=== PATIENT | female | born 1950 | race Caucasian/White ===

== ENCOUNTER 2020-06-20 11:32 | Outpatient (CLI) | payer OTHER, SELFPAY ==
[2020-06-20 12:21] LABS: Add Urine Microscopic? NO
[2020-06-20 12:27] LABS: Basophils # 0.1 10^3/uL (0.0-0.1); Basophils % 1.1 %; Eosinophils # 0.2 10^3/uL (0.0-0.8); Eosinophils % 3.2 %; Hematocrit 43.2 % (37.0-47.0); Hemoglobin 13.7 g/dL (11.5-15.3); Lymphocytes % 30.7 %; Mean Corpuscular HGB Conc 31.7 g/dL (30.0-36.0); Mean Corpuscular Volume 91.3 fL (81-99); Mean Platelet Volume 12.5 fL (7.4-10.4); Monocytes # 0.6 10^3/uL (0.2-0.9); Monocytes % 8.9 %; Neutrophils # 3.73 10^3/uL (1.8-7.7); Neutrophils % 55.9 %; Nucleated Red Blood Cells % 0 %; Platelet Count 195 10^3/cmm (130-400); Red Blood Count 4.73 10^6/uL (4.1-5.3); Red Cell Distribution Width 12.4 % (12.1-15.1); White Blood Count 6.7 10^3/uL (4.0-10.0)
[2020-06-20 12:32] LABS: Bilirubin Urine Neg (NEGATIVE); Blood Urine Neg (Negative); Glucose Urine UA Norm (Normal); Ketones Urine Negative (Negative); Leukocyte Esterase Urine Negative (Negative); Nitrate Urine Negative (Negative); Protein Urine Neg (Negative); Urine Appearance Clear (CLEAR); Urine Color Yellow (Yellow); Urobilinogen Urine Neg (Negative); pH Urine 5 (5-7)
[2020-06-20 13:42] LABS: 25 Hydroxy Vitamin D 59 ng/mL (30-100); Alanine Aminotransferase 20 U/L (0-33); Albumin Level 4.3 g/dL (3.5-5.2); Alkaline Phosphatase 51 IU/L (35-105); Anion Gap 12.3 (5-19); Aspartate Amino Transferase 16 U/L (0-32); Blood Urea Nitrogen 23 mg/dL (8-23); Calcium 9.6 mg/dL (8.5-10.5); Carbon Dioxide 25 mmol/L (22-29); Chloride 107 mmol/L (98-107); Globulin 2.8 g/dL (1.3-4.6); Glucose 93 mg/dL (65-115); Osmolality Calculated 286 mOsm/kg (285-295); Potassium 4.3 mmol/L (3.5-5.1); Sodium 140 mmol/L (136-145); Thyroid Stimulating Hormone 0.06 uIU/mL (0.27-4.20); Total Bilirubin 0.3 mg/dL (0.15-1.2); Total Protein 7.1 g/dL (6.6-8.7)
[2020-06-20 15:39] LABS: Free T4 Free Thyroxine 1.28 ng/dL (0.82-1.77)
--- NOTE | 2020-06-20 18:04 | ONC FU_ITS ---
Dr. Edward Patient Follow-Up Note Patient: Valeria Morton Unit #: [id number]: 1950 Dicatated By: Miguel Edward M.D.Date of Visit:Jun 20, 2020 Onc Med Follow-up/Prog Note Chief Complaint: Breast cancer. History of Present Illness: This is a 69 year-old woman with multifocal grade 2 infiltrating ductal carcinoma of the right breast, stage IIB (T2, pN1mi, M0), ER/KY positive and HER-2/alek nonamplified. She had presented in August 2014 with an abnormal screening mammogram which showed a new area of architectural distortion in the right breast along the 12:00 axis. She had further evaluation with diagnostic mammogram and ultrasound on 10/01/2014. Those studies confirmed the presence of 2 areas of architectural distortion in the upper outer aspect of the right breast, one along the 10:00 axis measuring 1.4 x 1.9 cm and the other along the 12:00 axis measuring 1.8 x 0.8 cm. By ultrasound the lesions measured 1.4 x 1.0 cm and 0.5 x 0.7 cm respectively. Both were felt to be intermediate suspicion for malignancy. She underwent ultrasound-guided biopsy on 10/26/2014. Both lesions showed grade 2 infiltrating ductal carcinoma. The breast prognostic profile showed her tumor to be ER positive at 99% and KY positive at 99%. It was negative for overexpression of HER-2/alek, 2+ by IHC and amplification ratio 1.2 by FISH. I had seen her in October 2014 to discuss treatment options, and she decided not to pursue breast conservation. She underwent surgery on 12/31/2014. The procedure included right total mastectomy with axillary sentinel lymph node biopsy, prophylactic left mastectomy, and bilateral TRAM flap reconstruction. Pathology on the mastectomy showed a single tumor nodule in the upper outer quadrant which measured 2.2 x 1 x 0.6 cm. The nearest margin was 2 cm. The remainder of the breast showed a large amount of fibrocystic change, but there was no additional mass lesion identified. The tumor was a grade 1 invasive ductal carcinoma. 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 The sentinel lymph node biopsy showed a total of 4 lymph nodes, one of which showed micrometastatic involvement which measured at 0.4 mm. The left breast showed no diagnostic abnormality. Evaluation from the initial biopsy also included an Oncotype DX assay which came back low risk with a recurrence score of 2, correlating with a 4% risk of recurrence at 10 years ollowing adjuvant hormonal therapy. I had seen her for a follow-up visit in January 2015. At that time we discussed adjuvant hormonal therapy. I had recommended 5 years of treatment with anastrozole. She ultimately declined treatment, and she has been followed on observation/expectant management. Her other medical illnesses include allergic rhinitis, degenerative disease of the spine, and overactive bladder. She also has a history of thyroid nodules with associated hyperparathyroidism, but she has not required treatment for it. Her laboratory studies in 2017 did show evidence of vitamin D deficiency, for which she has been on replacement therapy. She is a nonsmoker. She is seen for a followup visit. She has been feeling pretty good generally, though she says her energy has been better. She has normal activity, though. Her ECOG score is 0. She says her blood pressure has been elevated. She has good appetite. She has not had fever. She has a little bit of hot flashes and sweating. Her main complaint is that for the past 2 to 3 months she has been having pain in the lateral aspect of the right thigh. It tends to bother her particularly when she is lifting her right leg or crossing her right leg over to the left side. She has no shortness of breath, cough, or chest pain. She has no GI complaints other than mild constipation, which she manages adequately with a stool softener. She says her bladder function is never good, but it is not any worse. She has frequency and urgency. She did have a urinary tract infection when it was checked last year. She also has some joint pain and some low back pain, which she manages adequately with ibuprofen once or twice a day. She has no focal neurologic symptoms. Medications: Annette 1 (180 mg) Tablet Oral daily, Azo Tabs 1 Tablet Oral daily PRN, Calcium 1 (600 mg) Tablet Oral daily, Cholecalciferol 1 (1000 Units) Tablet Oral daily, Colace 1 (200 mg) Capsule Oral every am, Ibuprofen 1 (800 mg) Tablet Oral b.i.d. PRN, Lisinopril 1 (5 mg) Tablet Oral daily, Megestrol Acetate 1 (20 mg) Tablet Oral daily, sagpro 1 Tablet daily Allergies: sulfADIAZINE Review of Systems: Constitutional - She has been feeling good, though she says her energy has been better. She has normal activity, though. Her appetite is good and her weight is down about 4 pounds from last years visit. No fever, night sweats, or hot flashes. ECOG score is 0, ENMT - She has chronic sinus congestion/drainage. No mouth sores. No sore throat or difficulty swallowing, Hematologic/Lymphatic - She bruises easily, Respiratory - No shortness of breath. No cough. No pleuritic pain or hemoptysis, Cardiovascular - No angina pain. No palpitations, Gastrointestinal - No nausea or vomiting. No heartburn or acid reflux. No diarrhea or constipation. No blood in the stool or black stools, Genitourinary (F) - No dysuria or hematuria. She has urinary frequency and urgency. No incontinence, Musculoskeletal - She is having pain to her right hip area, particularly when moving lifting her leg up or getting in and out of her car. She also has some arthritis pain in her lower back, shoulders, and hands, Integumentary - No skin complications, Neurologic - No headache or dizziness. No numbness or tingling. No other focal neurologic symptoms, Psychiatric - No anxiety or depression. No insomnia. Vital Signs: Performed on Jun 20, 2020 11:22 Height - 63.00 in Weight - 168.2 lbs (LOW) BSA - 1.80 sq.m BMI - 29.80 Temperature - 98.1 F (LOW) Pulse - 79 /min Respiration - 18 /min BP - 176/71 mm(hg) (HIGH) O2 Sat - 99 % Pain - 0 Physical Examination: Constitutional - She looks good generally, Eyes - Sclerae nonicteric. Conjunctivae clear, ENMT - No lesions noted in the oral cavity, Hematologic/Lymphatic - No cervical or clavicular adenopathy, Respiratory - Lungs are clear with good air movement bilaterally, Cardiovascular - Heart rhythm is regular. There is no murmur, gallop, or rub noted, Breasts - There are no lesions noted in the chest wall/reconstruction bilaterally. There is no axillary adenopathy noted, Abdomen - Soft. Liver and spleen are not enlarged. There is no abdominal mass or ascites noted and there is no inguinal adenopathy, Extremities - No edema. There is focal tenderness in the lateral aspect of the upper right thigh, Neurologic - No focal neurologic deficits noted. Impression: 1. Patient with multifocal grade 2 invasive ductal carcinoma of the right breast, stage IIB (T2, pN1mi, M0), ER/KY positive and HER-2/alek negative. She was low risk by Oncotype DX, recurrence score 2. 2. She underwent bilateral mastectomy, right axillary sentinel lymph node biopsy, and bilateral TRAM flap reconstruction on 12/31/2014. 3. She declined adjuvant hormonal therapy. Her other medical illnesses include: 4. Hypertension. 5. Allergic rhinitis. 6. Degenerative arthritis. 7. Overactive bladder. 8. She has a history of thyroid nodules with associated hyperparathyroidism. 9. She was found to have vitamin D deficiency. She has been followed on observation/expectant management following the surgery. Thus far there has been no evidence of recurrence of the breast cancer. Recently she has been having pain in the lateral aspect of the right thigh. She does have some tenderness in that area, and it may be a trochanteric bursitis. Overall, she appears to be doing well clinically. Plan: She remains on observation/expectant management for the breast cancer. She will have laboratory studies today to include CBC, comprehensive metabolic profile, thyroid profile, and 25-hydroxy vitamin D level. I also will recheck urinalysis and culture. Results will be forwarded to Dr. Flores. I suggested that she try Voltaren gel for the right leg pain. She will require evaluation, though, if that continues to worsen. Otherwise I will just see her again in 1 year. Signed By: Miguel Edward M.D. <<Signature on File>>
== END 2020-06-20 11:33 | disposition home or self-care (01) ==
PROVIDERS: PCP Family Medicine; Visit Provider Internal Medicine Medical Oncology
DX: Z08 Encounter for follow-up examination after completed treatment for malignant neoplasm (principal); Z85.3 Personal history of malignant neoplasm of breast; N32.81 Overactive bladder; E83.32 Hereditary vitamin D-dependent rickets (type 1) (type 2); I10 Essential (primary) hypertension; J30.9 Allergic rhinitis, unspecified; E21.3 Hyperparathyroidism, unspecified; M19.90 Unspecified osteoarthritis, unspecified site
CPT/HCPCS: 36415; 80053; 81003; 82306; 84439; 84443; 85025; 99214

== ENCOUNTER 2020-10-28 08:24 | Outpatient (CLI) | payer OTHER, SELFPAY ==
--- NOTE | 2020-10-28 08:27 | NM_ITS ---
WS: [id number] NUCLEAR MEDICINE 24 HOUR I-123 THYROID UPTAKE INDICATION: Abnormal TSH TECHNIQUE: I-123 24 HOUR THYROID UPTAKE WITH PLANAR IMAGING. 141 [facility] 123 COMPARISON: None FINDINGS: 24-hour thyroid uptake 21.02% within normal limits. Patchy heterogeneous uptake in both thy roid lobes. Large cold nodule within the right thyroid measuring approximately 2.5-3.0cm. Recommend f urther evaluation with thyroid ultrasound and FNA if indicated. This likely corresponds to the large peripherally calcified low-attenuation nodule in the prior cervical spine CT from 2018. Suggestion of additional smaller cold nodule in the right lower thyroid pole peripherally Additional nodular uptake within the left upper thyroid lobe and patchy uptake in the remainder of th e right thyroid lobe. Correlation with thyroid ultrasound would be helpful. NORMAL 24H THRYOID UPTAKE 8-35% NM/NM thyroid uptake multi [id number] IMPRESSION: 1. 24 hour thyroid uptake 21.0% 2. Large cold nodule in the right thyroid lobe measuring approximately 2.5- 3 cm. Recommend further evaluation with thyroid ultrasound and FNA if indicated a fter ultrasound. 3. Suggestion of smaller cold nodule in the right lower thyroid pole periphera lly
== END 2020-10-28 08:25 | disposition home or self-care (01) ==
LOC: RAD 08:25
PROVIDERS: PCP Family Medicine; Visit Provider Family Medicine
DX: E04.1 Nontoxic single thyroid nodule (principal)
CPT/HCPCS: 78014; A9516

== ENCOUNTER 2020-11-14 10:05 | Outpatient (CLI) | payer OTHER, SELFPAY ==
--- NOTE | 2020-11-14 10:08 | US_ITS ---
WS: [id number] Exam: US thyroid [id number] Date/Time of Exam: 11/14/2020 10:15 AM Reason For Exam: NONTOXIC SINGLE THYROID NODULE Evaluation of the right thyroid lobe shows an irregular thick-walled cystic lesion in the upper pole measuring 3 x 2.3 x 2.3 cm. This lesion also contains some coarse calcification. There is also a 1 x 1 x 0.7 cm solid hypoechoic nodule at the lower pole of the right thyroid lobe. The right lobe is enl arged and measures 4.6 x 2.8 x 3.1 cm. Evaluation of the left thyroid lobe shows an ill-defined hypoechoic solid lesion at the upper pole me asuring 1.7 x 1.34 x 1.13 cm. There are several other scattered cysts and tiny nodules in the left lo be. The left lobe is enlarged and measures 4.5 x 1.2 x 1.22 cm. The thyroid isthmus measures 2.3 mm a t greatest thickness. Nonspecific subcentimeter short axis lymph nodes identified in the right and left neck. Some show par tial fatty replacement. US/US thyroid [id number] IMPRESSION: 1. 1.7 x 1.34 x 1.13 cm ill-defined hypoechoic nodule in the upper pole of the left thyroid lobe. This is an indeterminate lesion and fine needle aspiration b iopsy would be recommended for further workup. 2. 3 x 2.3 x 2.3 cm thick-walled irregular cystic mass in the upper pole of the right thyroid lobe with coarse calcification. A second 1 x 1 x 0.7 cm solid no dule at the lower pole of the right thyroid lobe. Although both lesions in the right thyroid lobe are considered low probability for malignancy, fine needle a spiration biopsy of both lesions would be suggested for definitive diagnosis. 3. Goitrous enlargement of both thyroid lobes.
== END 2020-11-14 10:06 | disposition home or self-care (01) ==
LOC: US 10:06
PROVIDERS: PCP Family Medicine; Visit Provider Family Medicine
DX: E04.1 Nontoxic single thyroid nodule (principal); E04.9 Nontoxic goiter, unspecified; E07.9 Disorder of thyroid, unspecified
CPT/HCPCS: 76536

== ENCOUNTER → 2021-01-09 13:57 | Outpatient (BNVA) | payer MEDICARE, SELFPAY | PROVIDERS: PCP Family Medicine; Referring Provider Specialist; Visit Provider Internal Medicine | DX: E05.90 Thyrotoxicosis, unspecified without thyrotoxic crisis or storm (principal); E04.1 Nontoxic single thyroid nodule | CPT/HCPCS: 99204 ==

== ENCOUNTER 2021-01-13 10:44 | Outpatient (CLI) | payer MEDICARE, SELFPAY ==
[2021-01-13 15:30] LABS: Free T4 Free Thyroxine 1.07 ng/dL (0.82-1.77); Thyroid Stimulating Hormone 0.09 uIU/mL (0.27-4.20)
[2021-01-14 14:37] LABS: Thyroid Peroxidase Antobodies 1 IU/mL (<9)
[2021-01-16 16:13] LABS: TSH Receptor Binding Antibody <1.00 IU/L (< OR = 2.00)
== END 2021-01-13 10:45 | disposition home or self-care (01) ==
PROVIDERS: PCP Family Medicine; Visit Provider Internal Medicine
DX: E05.90 Thyrotoxicosis, unspecified without thyrotoxic crisis or storm (principal); E04.1 Nontoxic single thyroid nodule
CPT/HCPCS: 36415; 83516; 84439; 84443; 84480; 86376

== ENCOUNTER 2021-01-22 13:33 | Outpatient (CLI) | payer MEDICARE, SELFPAY ==
[2021-02-20 14:10] LABS: T3 Total 140
== END 2021-01-23 13:34 | disposition home or self-care (01) ==
PROVIDERS: PCP Family Medicine; Visit Provider Internal Medicine
DX: E05.90 Thyrotoxicosis, unspecified without thyrotoxic crisis or storm (principal); E04.1 Nontoxic single thyroid nodule
CPT/HCPCS: 36415; 84480

== ENCOUNTER 2021-04-17 06:00 | Outpatient (RCR) | payer MEDICARE, SELFPAY | END 2021-05-14 23:59 | disposition home or self-care (01) | LOC: SPT 06:00 | PROVIDERS: PCP Family Medicine; Referring Provider Family Medicine; Visit Provider Family Medicine | DX: M43.6 Torticollis (principal) | CPT/HCPCS: 97110; 97161; G0283 ==

== ENCOUNTER 2021-06-13 12:04 | Outpatient (CLI) | payer MEDICARE, SELFPAY ==
[2021-06-13 13:07] LABS: Free T4 Free Thyroxine 1.23 ng/dL (0.82-1.77); Thyroid Stimulating Hormone 0.01 uIU/mL (0.27-4.20)
[2021-06-14 09:18] LABS: T3 Total 144 ng/dL (76-181)
== END 2021-06-13 12:05 | disposition home or self-care (01) ==
LOC: LAB 12:11
PROVIDERS: PCP Family Medicine; Visit Provider Internal Medicine
DX: E04.1 Nontoxic single thyroid nodule (principal)
CPT/HCPCS: 36415; 84439; 84443; 84480

== ENCOUNTER → 2021-07-23 09:40 | Outpatient (BNVA) | payer MEDICARE, SELFPAY | PROVIDERS: PCP Family Medicine; Referring Provider Family Medicine; Visit Provider Specialist | DX: M25.531 Pain in right wrist (principal) | CPT/HCPCS: 73110 ==

== ENCOUNTER 2021-09-04 15:37 | Outpatient (CLI) | payer MEDICARE, SELFPAY ==
--- NOTE | 2021-09-04 19:40 | ONC FU_ITS ---
Dr. Edward Patient Follow-Up Note Patient: Valeria Morton Unit #: [id number]: 1950 Dicatated By: Miguel Edward M.D.Date of Visit:Sep 04, 2021 Onc Med Follow-up/Prog Note Chief Complaint: Breast cancer. History of Present Illness: This is a 70 year-old woman with multifocal grade 2 infiltrating ductal carcinoma of the right breast, stage IIB (T2, pN1mi, M0), ER/AZ positive and HER-2/alek nonamplified. She had presented in August 2014 with an abnormal screening mammogram which showed a new area of architectural distortion in the right breast along the 12:00 axis. She had further evaluation with diagnostic mammogram and ultrasound on 10/01/2014. Those studies confirmed the presence of 2 areas of architectural distortion in the upper outer aspect of the right breast, one along the 10:00 axis measuring 1.4 x 1.9 cm and the other along the 12:00 axis measuring 1.8 x 0.8 cm. By ultrasound the lesions measured 1.4 x 1.0 cm and 0.5 x 0.7 cm respectively. Both were felt to be intermediate suspicion for malignancy. She underwent ultrasound-guided biopsy on 10/26/2014. Both lesions showed grade 2 infiltrating ductal carcinoma. The breast prognostic profile showed her tumor to be ER positive at 99% and AZ positive at 99%. It was negative for overexpression of HER-2/alek, 2+ by IHC and amplification ratio 1.2 by FISH. I had seen her in October 2014 to discuss treatment options, and she decided not to pursue breast conservation. She underwent surgery on 12/31/2014. The procedure included right total mastectomy with axillary sentinel lymph node biopsy, prophylactic left mastectomy, and bilateral TRAM flap reconstruction. Pathology on the mastectomy showed a single tumor nodule in the upper outer quadrant which measured 2.2 x 1 x 0.6 cm. The nearest margin was 2 cm. The remainder of the breast showed a large amount of fibrocystic change, but there was no additional mass lesion identified. The tumor was a grade 1 invasive ductal carcinoma. 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 The sentinel lymph node biopsy showed a total of 4 lymph nodes, one of which showed micrometastatic involvement which measured at 0.4 mm. The left breast showed no diagnostic abnormality. Evaluation from the initial biopsy also included an Oncotype DX assay which came back low risk with a recurrence score of 2, correlating with a 4% risk of recurrence at 10 years ollowing adjuvant hormonal therapy. I had seen her for a follow-up visit in January 2015. At that time we discussed adjuvant hormonal therapy. I had recommended 5 years of treatment with anastrozole. She ultimately declined treatment, and she has been followed on observation/expectant management. Her other medical illnesses include allergic rhinitis, degenerative disease of the spine, and overactive bladder. She also has a history of thyroid nodules with associated hyperparathyroidism, but she had not required treatment for it. Her laboratory studies in 2016 did show evidence of vitamin D deficiency, for which she has been on replacement therapy. She is a nonsmoker. INTERIM HISTORY: At her follow-up visit in June 2020 she appeared stable clinically with no evidence of recurrence of the breast cancer. Her laboratory studies at that time did show evidence of hyperthyroidism with TSH low at 0.06 ???IU/mL. Her further evaluation included a thyroid uptake nuclear medicine scan and thyroid ultrasound, and she ultimately underwent biopsy by Dr. Ramirez. She was then referred to Dr. Cochran for further management, and in June she started treatment with methimazole. She is seen for a follow-up visit. She has been feeling good generally. She has good energy and she has normal activity. ECOG score is 0. Her appetite is good. She has not had fever, night sweats, or hot flashes. She does report that her vision has been more blurry. She has some allergy related sinus symptoms. She does not complain of cough, and she has not been having shortness of breath or chest pain. She has had a little bit of heartburn. She has no other GI complaints. She has hyperactive bladder. She has chronic low back pain and she also has developed some pain in her knees. She has been taking meloxicam. She does not complain of headache or dizziness. She has no numbness/paresthesia or other focal neurologic symptoms. Medications: Annette 1 (180 mg) Tablet Oral daily, Azo Tabs 1 Tablet Oral daily PRN, Calcium 1 (600 mg) Tablet Oral daily, Cholecalciferol 1 (1000 Units) Tablet Oral daily, Colace 1 (200 mg) Capsule Oral every am, Lisinopril 1 (5 mg) Tablet Oral daily, Megestrol Acetate 1 (20 mg) Tablet Oral daily, Meloxicam 1 Tablet (of 15 mg) Oral daily, sagpro 1 Tablet daily, Vitamin C 1 Caplet (of 500 mg) Capsule Oral daily, Zinc 1 (50 mg) Tablet Oral daily Allergies: sulfADIAZINE Vital Signs: Performed on Sep 04, 2021 16:02 Height - 63.00 in Weight - 176.6 lbs (HIGH) BSA - 1.83 sq.m BMI - 31.28 (HIGH) Temperature - 99.6 F (HIGH) Pulse - 86 /min Respiration - 18 /min BP - 148/86 mm(hg) (HIGH) O2 Sat - 98 % Pain - 0 Fatigue - 0 Physical Examination: Constitutional - She looks good generally, Eyes - Sclerae nonicteric. Conjunctivae clear, ENMT - No lesions noted in the oral cavity, Neck - No mass or thyromegaly noted, Hematologic/Lymphatic - No cervical, clavicular, or axillary adenopathy, Respiratory - Lungs are clear with good air movement bilaterally, Cardiovascular - Heart rhythm is regular. There is no murmur, gallop, or rub noted, Abdomen - Soft. Liver and spleen are not enlarged. There is no abdominal mass or ascites noted and there is no inguinal adenopathy, Extremities - No edema. Pedal pulses are palpable bilaterally, Neurologic - No focal neurologic deficits noted. Problem List: 1. Multifocal grade 2 invasive ductal carcinoma of the right breast, stage IIB (T2, pN1mi, M0), ER/AZ positive and HER-2/alek negative. She was low risk by Oncotype DX, recurrence score 2. 2. She underwent bilateral mastectomy, right axillary sentinel lymph node biopsy, and bilateral TRAM flap reconstruction on 12/31/2014. She declined adjuvant hormonal therapy. 3. Hyperthyroidism associated with nontoxic goiter. 4. Hypertension. 5. Allergic rhinitis. 6. Degenerative arthritis. 7. Overactive bladder. 8. Vitamin D deficiency. Problems Addressed with this Encounter and Plan: 1. Patient with multifocal grade 2 invasive ductal carcinoma of the right breast, stage IIB (T2, pN1mi, M0), ER/AZ positive and HER-2/alek negative. She was low risk by Oncotype DX, recurrence score 2. She underwent bilateral mastectomy, right axillary sentinel lymph node biopsy, and bilateral TRAM flap reconstruction on 12/31/2014. She has been followed on expectant management, as she had declined adjuvant hormonal therapy. During follow-up her overall clinical status has remained stable with no evidence of recurrence of the breast cancer. She is to for her yearly laboratory studies and will be scheduled for tomorrow to include CBC, comprehensive metabolic profile, and fasting lipid profile. 2. She has hyperthyroidism, for which she started treatment with methimazole in June. As such, her laboratory studies tomorrow will include free T4, free T3, and TSH levels. Signed By: Miguel Edward M.D. <<Signature on File>>
== END 2021-09-04 15:38 | disposition home or self-care (01) ==
PROVIDERS: PCP Family Medicine; Referring Provider Family Medicine; Visit Provider Internal Medicine Medical Oncology
DX: Z08 Encounter for follow-up examination after completed treatment for malignant neoplasm (principal); Z85.3 Personal history of malignant neoplasm of breast; Z90.11 Acquired absence of right breast and nipple; Z90.12 Acquired absence of left breast and nipple; E05.90 Thyrotoxicosis, unspecified without thyrotoxic crisis or storm; E04.1 Nontoxic single thyroid nodule; I10 Essential (primary) hypertension; J30.9 Allergic rhinitis, unspecified; M19.90 Unspecified osteoarthritis, unspecified site; N32.81 Overactive bladder; E55.9 Vitamin D deficiency, unspecified; Z79.899 Other long term (current) drug therapy
CPT/HCPCS: 99214

== ENCOUNTER 2021-09-05 07:42 | Outpatient (CLI) | payer MEDICARE, SELFPAY ==
[2021-09-05 08:57] LABS: Basophils # 0.1 10^3/uL (0.0-0.1); Basophils % 1.3 %; Eosinophils # 0.2 10^3/uL (0.0-0.8); Eosinophils % 3.5 %; Hematocrit 44.1 % (37.0-47.0); Hemoglobin 14.1 g/dL (11.5-15.3); Lymphocytes # 2.1 10^3/uL (0.8-4.8); Lymphocytes % 30.3 %; Mean Corpuscular Hemoglobin 29.5 pg (28.0-34.0); Mean Corpuscular Volume 92.3 fl (81-99); Mean Platelet Volume 12.1 fL (7.4-10.4); Monocytes # 0.6 10^3/uL (0.2-0.9); Monocytes % 8.8 %; Neutrophils # 3.88 10^3/uL (1.8-7.7); Neutrophils % 55.8 %; Nucleated Red Blood Cells % 0 %; Platelet Count 201 10^3/cmm (130-400); Red Blood Count 4.78 10^6/uL (4.1-5.3); Red Cell Distribution Width 13.2 % (12.1-15.1); White Blood Count 6.9 10^3/uL (4.0-10.0)
[2021-09-05 09:21] LABS: Alanine Aminotransferase 18 U/L (0-33); Alkaline Phosphatase 56 IU/L (35-105); Anion Gap 11.8 (5-19); Aspartate Amino Transferase 13 U/L (0-32); Blood Urea Nitrogen 25 mg/dL (8-23); Carbon Dioxide 26 mmol/L (22-29); Chloride 105 mmol/L (98-107); Chol HDL Ratio 3.76 mg/dL (0.0-4.40); Cholesterol 173 mg/dL (0-200); Free T4 Free Thyroxine 1.05 ng/dL (0.82-1.77); Globulin 2.4 g/dL (1.3-4.6); Glomerular Filtration Rate 82.7 mL/min (90-130); Glucose 82 mg/dL (65-115); HDL Cholesterol 46 mg/dL (60-100); LDL Cholesterol Calculated 115 mg/dL (50-129); Osmolality Calculated 291 mOsm/kg (285-295); Potassium 3.8 mmol/L (3.5-5.1); Sodium 139 mmol/L (136-145); T3 Free 2.8 PG/ML (2.0-4.4); Thyroid Stimulating Hormone 0.87 uIU/mL (0.27-4.20); Total Bilirubin 0.4 mg/dL (0.15-1.2); Total Protein 6.4 g/dL (6.6-8.7); Triglycerides 62 mg/dL (0-150)
== END 2021-09-05 07:43 | disposition home or self-care (01) ==
LOC: ONCMED 07:44
PROVIDERS: PCP Family Medicine; Visit Provider Internal Medicine Medical Oncology
DX: C50.411 Malignant neoplasm of upper-outer quadrant of right female breast (principal); Z17.0 Estrogen receptor positive status [ER+]; E04.1 Nontoxic single thyroid nodule; E03.9 Hypothyroidism, unspecified
CPT/HCPCS: 36415; 80053; 80061; 84439; 84443; 84481; 85025

== ENCOUNTER → 2022-02-04 13:01 | Outpatient (BNVA) | payer MEDICARE, SELFPAY | PROVIDERS: PCP Family Medicine; Visit Provider Internal Medicine | DX: E05.90 Thyrotoxicosis, unspecified without thyrotoxic crisis or storm (principal); E04.1 Nontoxic single thyroid nodule; E04.9 Nontoxic goiter, unspecified; N30.20 Other chronic cystitis without hematuria | CPT/HCPCS: 83516; 84439; 84443; 84480; 99214 ==

== ENCOUNTER 2022-03-26 13:17 | Outpatient (CLI) | payer MEDICARE, SELFPAY ==
[2022-03-26 14:18] LABS: Free T4 Free Thyroxine 1.06 ng/dL (0.82-1.77); Thyroid Stimulating Hormone 0.97 uIU/mL (0.27-4.20)
[2022-03-27 10:57] LABS: T3 Total 123 ng/dL (76-181)
== END 2022-03-26 13:18 | disposition home or self-care (01) ==
LOC: LAB 13:25
PROVIDERS: PCP Family Medicine; Visit Provider Internal Medicine
DX: E05.90 Thyrotoxicosis, unspecified without thyrotoxic crisis or storm (principal)
CPT/HCPCS: 84439; 84443; 84480

== ENCOUNTER → 2022-04-08 10:25 | Outpatient (BNVA) | payer MEDICARE, SELFPAY | PROVIDERS: PCP Family Medicine; Visit Provider Internal Medicine | DX: E04.1 Nontoxic single thyroid nodule (principal); E05.90 Thyrotoxicosis, unspecified without thyrotoxic crisis or storm; E04.9 Nontoxic goiter, unspecified | CPT/HCPCS: 99214 ==

== ENCOUNTER 2022-08-04 13:07 | Outpatient (CLI) | payer MEDICARE, SELFPAY ==
--- NOTE | 2022-08-04 13:00 | XR_ITS ---
WS: [id number] DEXA (DUAL ENERGY X-RAY ABSORPTIOMETRY) Bone mineral density was performed using a [employer] machine. HISTORY: post-menopausal COMPARISON: 02/11/2015 Lumbar spine BMD (L1-L4): 1.115 g/cm2 T score: -0.5 Z score: 0.6 Total hip BMD: Left: 1.009 g/cm2. T score: 0.0 Z score: 1.2 Right: 0.978 g/cm2. T score: -0.2 Z score: 0.9 10 year probability of a major osteoporotic fracture is 8.2%. Compared to the prior study from 02/11/2015. Lumbar spine bone mineral density has decrease by 9.4%. Bilateral hips bone mineral density has decreased by 11.3%. IMPRESSION: NORMAL BONE MINERAL DENSITY based upon the WHO classification for females. Since the prior examination there has been a significant decrease in bone mineral density within both the lumbar spine and hips.
== END 2022-08-04 13:08 | disposition home or self-care (01) ==
LOC: RAD 13:10
PROVIDERS: PCP Family Medicine; Visit Provider Family Medicine
DX: Z78.0 Asymptomatic menopausal state (principal)
CPT/HCPCS: 77080

== ENCOUNTER → 2022-08-06 10:43 | Outpatient (BNVA) | payer MEDICARE, SELFPAY | PROVIDERS: PCP Family Medicine; Visit Provider Family Medicine | DX: Z78.0 Asymptomatic menopausal state (principal); I10 Essential (primary) hypertension; E05.90 Thyrotoxicosis, unspecified without thyrotoxic crisis or storm; Z23 Encounter for immunization | CPT/HCPCS: 80053; 80061; 84439; 84443; 84480; 85025 ==

== ENCOUNTER → 2022-10-12 12:08 | Outpatient (BNVA) | payer MEDICARE, SELFPAY | PROVIDERS: PCP Family Medicine; Visit Provider Family Medicine | DX: E05.90 Thyrotoxicosis, unspecified without thyrotoxic crisis or storm (principal) | CPT/HCPCS: 84439; 84443; 84480 ==

== ENCOUNTER → 2023-04-20 11:09 | Outpatient (BNVA) | payer MEDICARE, SELFPAY | PROVIDERS: PCP Family Medicine; Visit Provider Family Medicine | DX: E05.90 Thyrotoxicosis, unspecified without thyrotoxic crisis or storm (principal) | CPT/HCPCS: 84439; 84443; 84480 ==

== ENCOUNTER → 2023-07-27 13:32 | Outpatient (BNVA) | payer MEDICARE, SELFPAY | PROVIDERS: PCP Family Medicine; Visit Provider Family Medicine | DX: N39.41 Urge incontinence (principal); N30.20 Other chronic cystitis without hematuria; I10 Essential (primary) hypertension; R30.0 Dysuria | CPT/HCPCS: 80053; 80061; 81000; 82043; 85025; 87086 ==

== ENCOUNTER → 2023-08-23 09:30 | Outpatient (BNVA) | payer MEDICARE, SELFPAY | PROVIDERS: PCP Family Medicine; Visit Provider Specialist | DX: M17.12 Unilateral primary osteoarthritis, left knee | CPT/HCPCS: 73560; 73565; 99214 ==

== ENCOUNTER 2023-09-29 10:43 | Outpatient (CLI) | payer MEDICARE, SELFPAY ==
--- NOTE | 2023-09-29 11:00 | MR_ITS ---
WS: [id number] MRI LEFT KNEE HISTORY: positive Randy's, rule out meniscal injury COMPARISON: None available. Anterior cruciate ligament: Focal gap in signal abnormality in the distal ACL. There is also distorti on of the ACL posteriorly. Highly suspicious for distal ACL tear. Posterior cruciate ligament: Intact. Medial collateral ligament: Intact. Posterior lateral corner structures: Intact. Medial menisci: Horizontal tear posterior horn extends to the inferior articular surface. Lateral meniscus: Abnormal signal involving a large portion of the posterior horn lateral meniscus to wards the free edge consistent with a complex tear. Abnormal signal extends to both the superior and intra-articular surfaces. Horizontal component of the tear also extends towards the free edge. Extensor mechanism: Distal quadriceps tendon and patellar tendons are intact. Fluid and soft tissue: Moderate-sized suprapatellar joint effusion. No Valderrama's cyst. Osseous and articular structures: Patellofemoral compartment: Complete loss of cartilage. Moderate narrowing of the joint space. Small amount of edema towards the patellar eminence. Medial compartment: Moderate narrowing medial compartment with loss of cartilage. Lateral compartment: Marked narrowing of the lateral compartment. Loss of cartilage. No fractures. IMPRESSION: 1. Signal gap in the distal ACL suspicious for tear. 2. Posterior horn meniscal tears involving both the medial and lateral compartments. More complex tea r extending towards the meniscal root in the posterior lateral meniscus. 3. Moderate size suprapatellar joint effusion. 4. Tricompartment joint space narrowing with chondromalacia. Most significant joint space narrowing i nvolves the lateral compartment.
== END 2023-09-29 10:44 | disposition home or self-care (01) ==
LOC: RAD 10:44
PROVIDERS: PCP Family Medicine; Visit Provider Specialist
DX: S83.282A Other tear of lateral meniscus, current injury, left knee, initial encounter (principal); S83.242A Other tear of medial meniscus, current injury, left knee, initial encounter; X58.XXXA Exposure to other specified factors, initial encounter; M94.262 Chondromalacia, left knee
CPT/HCPCS: 73721

== ENCOUNTER → 2023-10-13 13:12 | Outpatient (BNVA) | payer MEDICARE, SELFPAY | PROVIDERS: PCP Family Medicine; Visit Provider Specialist | DX: M17.12 Unilateral primary osteoarthritis, left knee (principal) | CPT/HCPCS: 20610; 99214; J1100; J2795; J3301 ==

== ENCOUNTER → 2023-10-19 16:43 | Outpatient (BNVA) | payer MEDICARE, SELFPAY | PROVIDERS: PCP Family Medicine; Visit Provider Family Medicine | DX: E04.1 Nontoxic single thyroid nodule (principal); E05.90 Thyrotoxicosis, unspecified without thyrotoxic crisis or storm; E04.9 Nontoxic goiter, unspecified | CPT/HCPCS: 84439; 84443; 84480 ==

== ENCOUNTER → 2023-12-20 09:56 | Outpatient (BNVA) | payer MEDICARE, SELFPAY | PROVIDERS: PCP Family Medicine; Visit Provider Nurse Practitioner | DX: M17.12 Unilateral primary osteoarthritis, left knee (principal) | CPT/HCPCS: 73560; 73565; 99214 ==

== ENCOUNTER 2023-12-21 12:35 | Outpatient (CLI) | payer MEDICARE, SELFPAY ==
[2023-12-21 13:05] LABS: Add Urine Microscopic? NO; Charge for UA Resulting for Rev
[2023-12-21 13:19] LABS: Basophils # 0.1 10^3/uL (0.0-0.1); Basophils % 1.1 %; Eosinophils # 0.3 10^3/uL (0.0-0.8); Eosinophils % 3.7 %; Hematocrit 44.3 % (36-47); Lymphocytes # 2.2 10^3/uL (0.8-4.8); Lymphocytes % 31.1 %; Mean Corpuscular HGB Conc 31.4 g/dL (30-55); Mean Corpuscular Hemoglobin 27.8 pg (27-33); Mean Corpuscular Volume 88.6 fl (85-98); Mean Platelet Volume 12.3 fL (7.4-10.4); Monocytes # 0.6 10^3/uL (0.2-0.9); Monocytes % 8.9 %; Neutrophils # 3.88 10^3/uL (1.8-7.7); Neutrophils % 54.9 %; Nucleated Red Blood Cells % 0 %; Platelet Count 221 10^3/cmm (157-399); Red Cell Distribution Width 13.6 % (12.1-15.1); White Blood Count 7.07 10^3/uL (3.29-11.43)
[2023-12-21 13:33] LABS: Alanine Aminotransferase 25 U/L (0-33); Albumin Level 3.9 g/dL (3.5-5.2); Alkaline Phosphatase 91 U/L (35-105); Anion Gap 12.2 (5-19); Aspartate Amino Transferase 20 U/L (0-32); Blood Urea Nitrogen 19 mg/dL (8-23); Calcium 9.6 mg/dL (8.5-10.5); Carbon Dioxide 30 mmol/L (22-29); Chloride 101 mmol/L (98-107); Globulin 2.7 g/dL (1.3-4.6); Glucose 77 mg/dL (65-115); Osmolality Calculated 291 mOsm/kg (285-295); Potassium 3.2 mmol/L (3.5-5.1); Sodium 140 mmol/L (136-145); Total Bilirubin 0.4 mg/dL (0.15-1.2); Total Protein 6.6 g/dL (6.6-8.7)
[2023-12-21 13:41] LABS: Bilirubin Urine Neg (Negative); Blood Urine Neg (Negative); Glucose Urine UA Norm (Normal); Ketones Urine Negative (Negative); Leukocyte Esterase Urine Negative (Negative); Nitrate Urine Negative (Negative); Protein Urine Neg (Negative); Urine Appearance Clear (CLEAR); Urine Color Yellow (Yellow); Urobilinogen Urine Norm (Negative); pH Urine 7 (5-7)
== END 2023-12-21 12:36 | disposition home or self-care (01) ==
LOC: LAB 12:36
PROVIDERS: Nurse Practitioner; PCP Family Medicine; Visit Provider Specialist
DX: Z01.812 Encounter for preprocedural laboratory examination (principal)
CPT/HCPCS: 36415; 80053; 81003; 85025

== ENCOUNTER 2023-12-21 16:34 | Outpatient (CLI) | payer MEDICARE, SELFPAY ==
--- NOTE | 2023-12-21 17:00 | CT_ITS ---
WS: [id number] CT LEFT KNEE, NONCONTRAST SHAYLA TECHNIQUE: Noncontrast CT of the LEFT knee to include the LEFT hip and ankle. CLINICAL INFORMATION: pre-surgical planning COMPARISON: None. DLP: 970.[address] scans at [facility] use at least one of these dose optimization techniques: automated e xposure control; mA and/or kV adjustment per patient size (includes targeted exams where dose is matc hed to clinical indication); or iterative reconstruction. FINDINGS: Advanced tricompartment arthritis LEFT knee with hypertrophic changes along the joint line. Hypertrop hic patella. Moderate suprapatellar effusion. Sigmoid diverticulosis. No evidence of acute diverticul itis. Surgical clips in the anterior pelvis. Mild to moderate degenerative narrowing both hips. IMPRESSION: Images obtained for preoperative purposes.
== END 2023-12-21 16:35 | disposition home or self-care (01) ==
LOC: RAD 16:34
PROVIDERS: PCP Family Medicine; Visit Provider Nurse Practitioner
DX: M17.12 Unilateral primary osteoarthritis, left knee (principal); M25.462 Effusion, left knee
CPT/HCPCS: 73700

== ENCOUNTER → 2023-12-27 13:53 | Outpatient (BNVA) | payer MEDICARE, SELFPAY | PROVIDERS: PCP Family Medicine; Visit Provider Family Medicine | DX: Z01.818 Encounter for other preprocedural examination (principal) | CPT/HCPCS: 93005 ==

== ENCOUNTER 2023-12-28 11:49 | Observation (INO) | payer MEDICARE, SELFPAY ==
[2023-12-28] VITALS (16 sets, daily range): BP systolic 102–191; BP diastolic 57–95; PULSE 65–82; RESP 16–19; TEMP 36.3–37.1; O2SAT 93–98; BMI 31.8; BMI 32.2
--- NOTE | 2023-12-28 07:57 | W.PM.OPSUD ---
Surgery/Procedure H&P Update DATE OF PROCEDURE: December 28, 2023 DATE H&P PERFORMED: 12/27/23 H&P UPDATE INFORMATION: I have reviewed H&P completed within last 30 days, I have examined patient prior to procedure, No changes to prior documentation and H&P is in [facility] [place] EMR on date indicated PRIMARY INDICATION FOR PROCEDURE: Severe degenerative osteoarthritis left knee PLANNED PROCEDURE: Operation Date: 12/28/23 09:25 Proposed Procedures p Slava Robot Total Knee Arthroplasty(Left) - Maria Isabel Zuñiga MD Related Problem List Diagnoses (1) Primary osteoarthritis of left knee:
[2023-12-28] MEDS: gabapentin 300 mg Capsule PO (08:28)
[2023-12-28] MEDS: sodium chloride 0.9% 1,000 ML 30 ML IV (08:28)
[2023-12-28] MEDS: acetaminophen 1,000 MG/100 ML PIGGYBACK 400 MG IV ×2 (08:28→17:29)
[2023-12-28] MEDS: CELEcoxib 200 mg Capsule 400 MG PO (08:28)
[2023-12-28] MEDS: ceFAZolin 2,000 MG in sodium chloride 0.9% (plus) 50 ML 100 MG IV ×2 (09:26→18:03)
--- NOTE | 2023-12-28 10:13 | SUR.OPER ---
called and notified him of surgical start.
[2023-12-28] MEDS: tranexamic acid 1,000 mg/10mL SDV 1000 MG (10:17)
[2023-12-28] MEDS: ceFAZolin 1,000 mg SDV 2000 MG IRRIGATION (10:19)
[2023-12-28] MEDS: BUPivacaine 0.5% INJ 30 mL XX (10:20)
[2023-12-28] MEDS: BUPivacaine liposome 13.3 mg/mL SDV 10 mL 266 MG INFILTRATI (10:22)
[2023-12-28] MEDS: vancomycin 1,000 MG SDV 1000 MG INTRA-ARTI (10:23)
--- NOTE | 2023-12-28 11:35 | ANES.PREANE2 ---
Pre-Anesthetic Assessment Height/Weight: Height 1.6 m Weight 81.647 kg Temp Pulse Resp BP Pulse Ox O2 Del Method 98.0 F 82 17 191/95 96 Room Air 12/28/23 08:03 12/28/23 08:03 12/28/23 08:03 12/28/23 08:03 12/28/23 08:03 12/28/23 08:08 Operation Date: 12/28/23 09:25 Proposed Procedures p Slava Robot Total Knee Arthroplasty(Left) - Maria Isabel Zuñiga MD Familial anesthetic complications: none Was Beta Dee Dee taken within 24 hours: N/A Was Clonidine taken within 24 hours: N/A Last intake: Intake Last Liquid Date 12/27/23 Last Liquid Time 23:30 Last Solid Date 12/27/23 Last Solid Time 21:00 Social No alcohol and No tobacco Exam alert, oriented x 3, clear to auscultation bilaterally and regular rate & rhythm Airway Submandibular: within normal limits Cervical ROM: within normal limits Mallampati: Class II Dentition: full CV/HEM Hypertension Metabolic Thyroid Disease Musc/skel Osteoarthritis/DJD Anesthetic Plan ASA status: 2 Anesthesia: Regional (specify below) (SAB with left adductor blk) Medications/Allergies Home Medications Medication Instructions Recorded Confirmed Last Taken Type ascorbate calcium (vitamin C) 500 500 mg PO DAILY 02/14/20 12/27/23 12/27/23 History mg tablet calcium carbonate 600 mg calcium 600 mg PO DAILY 02/14/20 12/27/23 12/27/23 History (1,500 mg) tablet docusate sodium 100 mg capsule 200 mg PO DAILY 02/14/20 12/27/23 12/27/23 History (Stool Softener) fexofenadine 180 mg tablet 180 mg PO DAILY 02/14/20 12/27/23 12/27/23 History (Annette Allergy) fluticasone propionate 50 1 spray intranasal DAILY PRN 02/14/20 12/27/23 Unknown History mcg/actuation nasal allergies spray,suspension (Flonase Allergy Relief) omega-3 fatty acids 1,000 mg 1,000 mg PO DAILY 02/14/20 12/27/23 12/21/23 History capsule (Fish Oil Concentrate) turmeric 400 mg capsule 400 mg PO DAILY 02/14/20 12/27/23 12/21/23 History zinc 50 mg tablet 50 mg PO DAILY 11/28/20 12/27/23 12/21/23 History multivitamin 1 tab PO DAILY 01/09/21 12/27/23 12/27/23 History cholecalciferol (vitamin D3) 50 50 mcg PO DAILY 07/27/23 12/27/23 12/27/23 History mcg (2,000 unit) capsule lisinopril 5 mg tablet 5 mg PO DAILY 12/27/23 12/27/23 12/27/23 History meloxicam 15 mg tablet 15 mg PO DAILY 12/27/23 12/27/23 12/21/23 History methimazole 5 mg tablet 5 mg PO DAILY 12/27/23 12/27/23 12/27/23 History nitrofurantoin 100 mg PO BID PRN UTI 12/27/23 12/27/23 Unknown History monohydrate/macrocrystals 100 mg capsule Allergies Allergy/AdvReac Type Severity Reaction Status Date / Time morphine Allergy rash Verified 12/28/23 07:57 Sulfa (Sulfonamide Allergy rash Verified 12/28/23 07:57 Antibiotics) Current Medications Generic Name Dose Route Start Last Admin Trade Name Freq PRN Reason Stop Dose Admin Sodium Chloride 1,000 mls @ 30 mls/hr 12/28/23 08:00 12/28/23 10:41 Sodium Chloride 0.9% IV 12/29/23 07:59 Infused .Q24H CYNTHIA Infusion PFSH Anesthesia Medical History Pre-operative laboratory examination Osteoarthritis Essential hypertension History of cancer of right breast Thyroid nodule, cold History of 2019 novel coronavirus disease (COVID-19) Nov. Feeling of incomplete bladder emptying Urgency incontinence Chronic cystitis Surgical History History of hysterectomy H/O breast augmentation H/O mastectomy BILATERAL S/P tonsillectomy and adenoidectomy History of bladder surgery Sling Family History Father , 89 Cancer Colon CAD (coronary artery disease) Mother , 55 Cancer Social History Smoking and tobacco/nicotine status: never used tobacco/nicotine Alcohol intake: never Substance/Drug Use: never Adopted: No Caregiver/support person: No Lives independently: No Household members: spouse Marital status: Current occupational status: employed Current gender identity: Female Data Anesthesia Cardiac Studies: No Data to Display Anesthesia Procedures Nerve Block Nerve Block 1: Main Anesthesia: spinal anesthesia block Time Out Performed: Yes Consent: requested by attending/covering physician, from patient, risks and benefits reviewed and patient agrees to proceed Nerve block location: adductor canal (left) Anesthesia monitors applied: pulse oximetry, EKG, BP cuff and oxygen Nerve block position: supine Anesthetic Used: ropivicaine 0.5% Amount of anesthesia used (mL): 20 Ultrasound used to: recognize landmarks Nerve Stimulator Used?: No Interscalene/Femoral BLK: 2 stimuplex 22 g needle used for position and inplane approach Injection: neg aspiration of heme Patient Tolerated Procedure: well Complications: none
--- NOTE | 2023-12-28 12:29 | PM.OP ---
Operative Report Date of procedure: December 28, 2023 Pre-op diagnosis: Degenerative osteoarthritis left knee with slight varus deformity Post-op diagnosis: Degenerative osteoarthritis left knee with slight varus deformity Post-op findings: Degenerative osteoarthritic change with significant loss of cartilage medially and laterally Procedure done: Left total knee arthroplasty with Slava guidance Implants: The [place] total knee system with a size 3 triathlon beaded cruciate retaining femur left, a triathlon titanium tibial component size 2 beaded, a triathlon X3 tibial bearing CS insert size 2 X 10 mm and a beaded triathlon titanium asymmetric patella size 29 x 9 mm Specimens removed/disposition: Bone, disposed of Pathology: None Surgeon: Maria Isabel Zuñiga MD Mud Temperer: Alisson Grady, nurse practitioner, who services were essential for positioning, retraction, closure, and completion of the surgical procedure Anesthesia: Spinal (With MAC, ASA 2, and with supplemental adductor canal block) Estimated blood loss (mL): 150 Tourniquet time (min): 0 (Not utilized) IV fluids (mL): 1,400 Urine output (mL): 300 Complications: None Findings: Severe degenerative osteoarthritis of the left knee with osteophytes and complete wear of cartilage. Condition: stable Disposition: PACU (Then transfer to floor for postoperative rehabilitation and pain management) Brief History: This 73-year-old woman presents today for left total knee arthroplasty. The patient has been treated with corticosteroid injections, but this is giving her only moderate relief and lasting only approximately 3 weeks. She is unable to straighten her leg completely. She sleeps with a pillow under her knee at night or hangs her leg off the bed. As she is not responding to conservative nonoperative measures, and she has had maximal medical therapies, plan is made to proceed with total knee arthroplasty. Risks and complications were discussed with her. Consents were signed and questions were answered. Procedure: The patient was brought to the operating theater, and after undergoing spinal anesthetic, with supplemental adductor canal block, ASA 2, the left lower extremity was prepped with Dura-Prep and draped in usual fashion following placement of a tourniquet high on the leg. The leg was then draped free.? Tourniquet was not elevated during the case.? A surgical pause was performed, and at the time of the surgical pause, we confirmed the site and side of surgery. Additionally, we confirmed the appropriate and timely administration of preoperative antibiotics, Ancef 2 g and Transexemic acid 1 g.? The availability of equipment was confirmed, and the patient's identity was verbalized as well. Following the surgical pause, an incision was made centering over the patella continuing proximally and distally as necessary to allow access to the knee joint. Dissection continued through skin and soft tissues using a scalpel. Hemostasis was obtained using electrocautery. The skin incision was followed by a median parapatellar arthrotomy. The leg was extended and the patella was able to be displaced laterally.? Appropriate arrays and markers were placed in appropriate position for use of the Slava.? Preoperative planning had been accomplished and was discussed in detail with the [facility] inside sales account representative.? Intraoperative mapping of the femur and tibia was accomplished after the arrays were placed.? Internal markers were also placed.? Once we had accomplished the Slava mapping, we began the appropriate resections for placement of the prosthesis.? The plan was for a cruciate retaining right total knee arthroplasty. Once appropriate mapping had been accomplished retraction was established using manual retraction by surgical technicians and also the Slava leg positioner and retractors.? The knee was evaluated.? There was significant osteoarthritic change as well as slight flexion contracture.? Appropriate bone resection was accomplished using the Slava.? The femur was sized to a size 3.? Following femoral cuts, attention was directed to the tibia.? Osteophytes were removed prior to this portion of the procedure.? We had performed a minimal medial release at the beginning of the procedure to allow for placement of the array.? Proximal tibia was evaluated, and it was felt that appropriate size for the tibia was a size 2.? Tray was noted to fit nicely with good coverage.? Rim fit was accomplished with the size 2. A trial reduction was accomplished after osteophytes have been removed as well as the medial and lateral menisci.? We had removed the anterior cruciate ligament at the beginning of the case and preserved the posterior cruciate ligament.? Trial reduction was accomplished with a size 3 femoral cruciate retaining component and a size 2 CS tibial bearing insert which was 9 mm.? Secondary to the balancing of the knee, we elected to place a 10 mm insert for the actual component. Alignment was felt to be appropriate as well.? Trial components were removed after the femur had been drilled.? Prior to removal of the tibial tray which had been pinned in position with appropriate rotation as determined by the Slava plan, we broached the tibia.? Subsequently, the 4 drill holes were made for the prosthetic component.? All trial components were removed, and the wound was irrigated.? Plans were made for insertion of the prosthetic components.? Prior to this, the patella was manually prepared.? After resection of the articular surface with the jogging system, it was measured and measured a 29 mm patella.? We resected approximately 6 mm of patella.? Patellar height was restored with the patellar component. Once again, the wound was irrigated.? The Tritanium tibia was impacted into position.? The beaded femur was then impacted into position in a cementless fashion. The CS tibial insert was placed prior to placement of the femoral component. The patella was pressed into position with a patellar clamp.? Exparel was injected about the components deep and superficially.? The knee was then copiously irrigated with betadine and saline and suctioned dry. Attention was then directed to closure. Closure was accomplished with 0 Vicryl in the fascial tissues.? The suture line of 0 Vicryl was supplemented with strata fix, #1, with a running stitch from proximal to distal and a second running stitch from distal to proximal.? This was followed by Surgiflo and vancomycin powder.? Following this, a 2-0 Monocryl was used in the subcutaneous tissues, and the skin was closed with 3-0 Strata fix.? Care was taken to assure an excellent subcutaneous as well as skin closure.? A sterile dressing was then placed consisting of Dermabond Prineo, OpSite, ABD, sterile soft roll, and an Robert wrap including over the foot. The patient was returned the Recovery Room in a satisfactory condition. X-rays were obtained and reviewed there.? The patient will be discharged to the floor for postoperative rehabilitation and pain management. Related Problem List Diagnoses (1) Primary osteoarthritis of left knee:
--- NOTE | 2023-12-28 12:43 | XRR_ITS ---
PROCEDURE INFORMATION: Exam: XR Left Knee Exam date and time: 12/28/2023 12:44 PM Age: 73 years old Clinical indication: Device placement; Joint replacement hardware; Prior surgery; Surgery date: Post-operative (0-2 days); Surgery type: Left tka; Additional info: Status post left tka, pacu images. TECHNIQUE: Imaging protocol: Radiologic exam of the left knee. Views: 3 views. COMPARISON: CT knee LT SHAYLA [id number] 12/21/2023 4:47 PM FINDINGS: Bones/joints: Expected postsurgical changes of left total knee arthroplasty with anatomic alignment and no immediate complications. Soft tissues: Postop emphysema. XR/XR knee LT 3V* [id number] IMPRESSION: Expected postsurgical changes of left total knee arthroplasty with anatomic alignment and no hardware complications.
[2023-12-28] MEDS: CELEcoxib 200 mg Capsule PO (13:39)
[2023-12-28] MEDS: chlorhexidine gluconate 0.12% Btl 473 mL 30 ML MUCOUS MEM ×3 (13:40→20:59)
--- NOTE | 2023-12-28 15:46 | ANE.PACU2 ---
Inpatient post-anesthesia follow up: Airway intact: Yes Vital signs: Temperature 97.4 F Pulse Rate 65 Respiratory Rate 17 Blood Pressure 156/83 Pulse Oximetry 97 Oxygen Delivery Me thod Room Air Oxygen Flow Rate Fraction of Inspir ed Oxygen Hydration adequate: Yes Nausea and vomiting: No Pain level: 1 Mental status: Baseline
[2023-12-28] MEDS: oxyCODONE 5 mg IR Tab/Cap PO ×2 (16:29→20:59)
[2023-12-28] MEDS: calcium carbonate 500 mg Chew Tablet 1000 MG PO (17:30)
[2023-12-28] MEDS: mupirocin oint 22 gm 1 APPLIC NASAL (17:30)
[2023-12-28] MEDS: iron polysaccharide complex 150 mg Capsule PO (17:30)
[2023-12-28] MEDS: sennosides-docusate Tablet 2 TAB PO (17:30)
[2023-12-29] VITALS (8 sets, daily range): BP systolic 118–134; BP diastolic 74–77; PULSE 66–90; RESP 16–18; TEMP 36.4–36.7; O2SAT 92–97
[2023-12-29] MEDS: CELEcoxib 200 mg Capsule PO ×2 (00:41→12:36)
[2023-12-29] MEDS: acetaminophen 1,000 MG/100 ML PIGGYBACK 400 MG IV ×2 (00:41→08:01)
[2023-12-29] MEDS: ceFAZolin 2,000 MG in sodium chloride 0.9% (plus) 50 ML 100 MG IV ×2 (01:06→08:06)
[2023-12-29] MEDS: oxyCODONE 5 mg IR Tab/Cap PO ×3 (01:08→11:53)
[2023-12-29 05:58] LABS: Basophils % 0.4 %; Eosinophils # 0.1 10^3/uL (0.0-0.8); Eosinophils % 0.9 %; Hematocrit 36.6 % (36-47); Lymphocytes # 1.4 10^3/uL (0.8-4.8); Lymphocytes % 14.2 %; Mean Corpuscular Hemoglobin 27.9 pg (27-33); Mean Corpuscular Volume 87.4 fl (85-98); Mean Platelet Volume 12.8 fL (7.4-10.4); Monocytes # 0.8 10^3/uL (0.2-0.9); Monocytes % 8.2 %; Neutrophils # 7.53 10^3/uL (1.8-7.7); Neutrophils % 75.9 %; Nucleated Red Blood Cells % 0 %; Platelet Count 179 10^3/cmm (157-399); Red Blood Count 4.19 10^6/uL (3.85-5.65); Red Cell Distribution Width 13.6 % (12.1-15.1); White Blood Count 9.92 10^3/uL (3.29-11.43)
[2023-12-29 06:16] LABS: Anion Gap 11.8 (5-19); Blood Urea Nitrogen 15 mg/dL (8-23); Calcium 8.5 mg/dL (8.5-10.5); Carbon Dioxide 26 mmol/L (22-29); Chloride 104 mmol/L (98-107); Glucose 145 mg/dL (65-115); Osmolality Calculated 289 mOsm/kg (285-295); Potassium 3.8 mmol/L (3.5-5.1); Sodium 138 mmol/L (136-145)
[2023-12-29] MEDS: chlorhexidine gluconate 0.12% Btl 473 mL 30 ML MUCOUS MEM ×2 (07:47→12:34)
[2023-12-29] MEDS: mupirocin oint 22 gm 1 APPLIC NASAL (07:48)
[2023-12-29] MEDS: multivitamin therapeutic Tablet 1 TAB PO (07:50)
[2023-12-29] MEDS: calcium carbonate 500 mg Chew Tablet 1000 MG PO (07:51)
[2023-12-29] MEDS: iron polysaccharide complex 150 mg Capsule PO (07:51)
[2023-12-29] MEDS: cholecalciferol (vitamin D3) 1,000 unit Tablet 1000 UNIT PO (07:51)
[2023-12-29] MEDS: lisinopril 5 mg Tablet PO (07:51)
[2023-12-29] MEDS: aspirin 325 mg EC Tablet PO (07:51)
[2023-12-29] MEDS: sennosides-docusate Tablet 2 TAB PO (07:51)
[2023-12-29] MEDS: ondansetron 2 mg/ML SDV 2 mL 4 MG IVP (07:55)
[2023-12-29] MEDS: methIMAzole 5 MG Tablet PO (08:12)
[2023-12-29] MEDS: acetaminophen 500 mg Tablet 1000 MG PO (11:53)
--- NOTE | 2023-12-29 13:37 | P.DS_ITS ---
Discharge Providers Date of Admission: 12/28/23 11:49 Date of Discharge: December 29, 2023 Attending Provider at Admission: Maria Isabel Zuñiga MD Attending Provider at Discharge: Maria Isabel Zuñiga MD Primary Care Provider: Blanca Smith DO Diagnoses at Discharge Discharge Diagnosis (1) Primary osteoarthritis of left knee: Status: Acute (2) Status post total left knee replacement not using cement: Status: Acute Permanent problem details: Date of procedure: December 28, 2023 Diagnosis: Degenerative osteoarthritis left knee with slight varus deformity Procedure done: Left total knee arthroplasty with Slava guidance Implants: The [employer] total knee system with a size 3 triathlon beaded cruciate retaining femur left, a triathlon titanium tibial component size 2 beaded, a triathlon X3 tibial bearing CS insert size 2 X 10 mm and a beaded triathlon titanium asymmetric patella size 29 x 9 mm Reason for Visit Reason for Visit: M17.12 Brief History: This 73-year-old woman presents today for left total knee arthroplasty. The patient has been treated with corticosteroid injections, but this is giving her only moderate relief and lasting only approximately 3 weeks. She is unable to straighten her leg completely. She sleeps with a pillow under her knee at night or hangs her leg off the bed. As she is not responding to conservative nonoperative measures, and she has had maximal medical therapies, plan is made to proceed with total knee arthroplasty. Risks and complications were discussed with her. Consents were signed and questions were answered. Hospital Course Hospital Course Patient was admitted under observation status postoperatively to the floor for postoperative rehabilitation and pain management. She did very well. On the first postoperative day, her dressing was removed. Her leg was benign. There is no edema noted. There is no significant swelling or neurovascular compromise. No evidence of DVT. Therefore, the patient had participated well with physical therapy and was ready for discharge to home. She was discharged the day following surgery. Physical Exam Const: COMMON NORMALS: no acute distress, average body habitus, patient oriented x3 and alert GENERAL APPEARANCE: cooperative and comfortable ORIENTATION/CONSCIOUSNESS: Yes awake HENMT: COMMON NORMALS: normocephalic and atraumatic HEAD & SCALP: normocephalic and atraumatic Eye: GENERAL EYE: appearance normal, both eyes and all related structures Chest: COMMONS NORMALS: normal inspection of the chest Resp: COMMON NORMALS: normal respiratory effort EFFORT & INSPECTION: Yes able to speak in complete sentences and Yes symmetric chest movement Extremity: LEFT LOWER EXTREMITY: Yes knee joint (Dressing removed, knee is benign) Left knee: Yes inspection (No significant ecchymosis), Yes palpation (Minimal to no pain), Yes ROM (Able to straight leg raise) and Yes neurovascular exam (Intact distally) Neuro: COMMON NORMALS: patient oriented x3 SENSORIUM/ORIENTATION: Yes alert Psych: COMMON NORMALS: mental status grossly normal APPEARANCE: Yes grossly normal ATTITUDE: Yes calm and Yes engaged ATTENTION/CONCENTRATION: Yes attention grossly intact Skin: COMMON NORMALS: no rashes or lesions noted GENERAL SKIN EXAM: no rashes or lesions noted Urinary Catheter Management: Gutierrez: Cath Placed During This Visit: yes, but has since been removed by the nurse Reason for Continuing Indwelling Catheter: Perioperative Use in Selected S urgeries Urinary Catheter Date of Insertion: 12/28/23 Urinary Catheter Time of Insertion: 09:35 Date Urinary Catheter Removed: 12/29/23 Time Urinary Catheter Discontinued: 06:45 Discharge Data Studies Completed and Pending Completed Studies During Hospitalization Category Date Time Status XR knee LT 3V* [id number] Stat Exams 12/28/23 12:43 Completed Radiology Impressions Knee X-Ray 12/28/23 12:43 IMPRESSION: Expected postsurgical changes of left total knee arthroplasty with anatomic alignment and no hardware complications. Laboratory Results WBC 9.92 10^3/uL (3.29-11.43) 12/29/23 05:04 RBC 4.19 10^6/uL (3.85-5.65) 12/29/23 05:04 Hgb 11.70 g/dL (11.27-16.99) 12/29/23 05:04 Hct 36.6 % (36-47) 12/29/23 05:04 MCV 87.4 fl (85-98) 12/29/23 05:04 MCH 27.9 pg (27-33) 12/29/23 05:04 MCHC 32.0 g/dL (30-55) 12/29/23 05:04 RDW 13.6 % (12.1-15.1) 12/29/23 05:04 Plt Count 179 10^3/cmm (157-399) 12/29/23 05:04 MPV 12.8 fL (7.4-10.4) H 12/29/23 05:04 Neut % (Auto) 75.9 % 12/29/23 05:04 Lymph % (Auto) 14.2 % 12/29/23 05:04 [place] % (Auto) 8.2 % 12/29/23 05:04 Eos % (Auto) 0.9 % 12/29/23 05:04 Baso % (Auto) 0.4 % 12/29/23 05:04 Neut # (Auto) 7.53 10^3/uL (1.8-7.7) 12/29/23 05:04 Lymph # (Auto) 1.4 10^3/uL (0.8-4.8) 12/29/23 05:04 [place] # (Auto) 0.8 10^3/uL (0.2-0.9) 12/29/23 05:04 Eos # (Auto) 0.1 10^3/uL (0.0-0.8) 12/29/23 05:04 Baso # (Auto) 0.0 10^3/uL (0.0-0.1) 12/29/23 05:04 Nucleated RBC % (auto) 0 % 12/29/23 05:04 Nucleated RBCs # 0.0 /100WBC 12/29/23 05:04 Sodium 138 mmol/L (136-145) 12/29/23 05:04 Potassium 3.8 mmol/L (3.5-5.1) 12/29/23 05:04 Chloride 104 mmol/L (98-107) 12/29/23 05:04 Carbon Dioxide 26 mmol/L (22-29) 12/29/23 05:04 Anion Gap 11.8 (5-19) 12/29/23 05:04 BUN 15 mg/dL (8-23) 12/29/23 05:04 Creatinine 0.5 mg/dL (0.5-0.9) 12/29/23 05:04 GFR Calculation Not Reportable 12/29/23 05:04 Glucose 145 mg/dL (65-115) H 12/29/23 05:04 Calculated Osmolality 289 mOsm/kg (285-295) 12/29/23 05:04 Calcium 8.5 mg/dL (8.5-10.5) 12/29/23 05:04 Vitals Last Vital Signs Temp 97.9 F 12/29/23 12:00 Pulse 75 12/29/23 12:00 Resp 16 12/29/23 12:00 BP 134/76 12/29/23 12:00 Pulse Ox 94 12/29/23 12:00 O2 Del Method Room Air 12/29/23 12:00 Discharge Plan Discharge Patient Disposition: Home Health Service Condition: Stable Prescriptions: New hydrocodone-acetaminophen 5-325 mg tablet 1 tab PO Q4H PRN (Reason: pain) 7 Days Qty: 30 0RF celecoxib 200 mg Capsule 200 mg PO 1XD 30 Days Qty: 30 0RF acetaminophen 500 mg Tablet 1,000 mg PO Q8H 15 Days Qty: 90 0RF aspirin 325 mg Tablet,Delayed Release (Dr/Ec) 325 mg PO DAILY 30 Days Qty: 30 0RF Continued zinc 50 mg tablet 50 mg PO DAILY multivitamin Tablet 1 tab PO DAILY fluticasone propionate [Flonase Allergy Relief] 50 mcg/actuation spray,suspension 1 spray INTRANASAL DAILY PRN (Reason: allergies) fexofenadine [Annette Allergy] 180 mg tablet 180 mg PO DAILY turmeric 400 mg capsule 400 mg PO DAILY ascorbate calcium (vitamin C) 500 mg tablet 500 mg PO DAILY omega-3 fatty acids [Fish Oil Concentrate] 1,000 mg capsule 1,000 mg PO DAILY calcium carbonate 600 mg calcium (1,500 mg) tablet 600 mg PO DAILY docusate sodium [Stool Softener] 100 mg capsule 200 mg PO DAILY cholecalciferol (vitamin D3) 50 mcg (2,000 unit) capsule 50 mcg PO DAILY meloxicam 15 mg tablet 15 mg PO DAILY methimazole 5 mg tablet 5 mg PO DAILY lisinopril 5 mg tablet 5 mg PO DAILY nitrofurantoin monohyd/m-cryst 100 mg capsule 100 mg PO BID PRN (Reason: UTI) Discharge Orders: Discharge Order (Routine); Ordered 12/29/23 Ordered By: Maria Isabel Zuñiga Referrals: [facility] ([facility] [Outside] Maria Isabel Zuñiga MD [Physician] - 01/12/24 8:15 am Discharge Diet: Advance as tolerated, Usual diet and As Directed Discharge Activity: Increase activity as tolerated, Limit activity as instructed, Use walker/crutches as instructed and As per PT/OT instructions Patient Instructions: Hydrocodone/Acetaminophen (By mouth), Aspirin (By mouth), Celecoxib (By mouth), Total Knee Replacement (GEN), Joint Replacement Stoplight, Opioid Safety Assessment: Ice to left knee. Weightbearing as tolerated. You may shower, but do not remove the dressing remaining on your knee at the time of discharge. Range of motion, strengthening, and weightbearing per physical therapy instructions. Discharge Attestations Time Spent in Discharge Care*: greater than 30 min Specific Discharge Activities: educating patient, documenting/other paperwork and evaluating patient/reviewing data Quality Metrics Clinical Quality Measures [ No reported AMI, CVA or VTE this stay] Coding Level of Care Code Acute Code for Chg Fwd Diagnoses Primary osteoarthritis of left knee M17.12 Status post total left knee replacement not using cement Z96.652
== END 2023-12-29 14:52 | disposition home health service (06) ==
LOC: MEDSURG 11:49
PROVIDERS: Admitting Provider Specialist; PCP Family Medicine; Visit Provider Specialist
PROC: 8E0Y0CZ Robotic Assisted Procedure of Lower Extremity, Open Approach (ICD-10-PCS; CPT 27447; principal; 2023-12-28 09:15)
DX: M17.12 Unilateral primary osteoarthritis, left knee (principal); M21.162 Varus deformity, not elsewhere classified, left knee; I10 Essential (primary) hypertension; Z85.3 Personal history of malignant neoplasm of breast; Z86.16 Personal history of COVID-19
CPT/HCPCS: 20985; 27447; 36415; 51702; 73562; 80048; 85025; 97110; 97116; 97161; 97165; 97530; 97535; C1776; C9290; G0378; J0131; J0690; J2250; J2405; J2704; J2795; J3010; J3370; J3490; J7030; P9045

== ENCOUNTER → 2024-01-12 08:29 | Outpatient (BNVA) | payer MEDICARE, SELFPAY | PROVIDERS: PCP Family Medicine; Visit Provider Specialist | DX: Z96.652 Presence of left artificial knee joint (principal); M17.12 Unilateral primary osteoarthritis, left knee | CPT/HCPCS: 73560; 73565; 99024 ==

== ENCOUNTER 2024-01-19 10:34 | Outpatient (RCR) | payer MEDICARE, SELFPAY | END 2024-02-13 23:59 | disposition home or self-care (01) | LOC: SPT 10:34 | PROVIDERS: PCP Family Medicine; Visit Provider Specialist | DX: Z47.1 Aftercare following joint replacement surgery (principal); Z96.652 Presence of left artificial knee joint | CPT/HCPCS: 97110; 97161 ==

== ENCOUNTER 2024-02-15 12:40 | Outpatient (RCR) | payer MEDICARE, SELFPAY | END 2024-03-02 23:59 | disposition home or self-care (01) | LOC: SPT 12:40 | PROVIDERS: PCP Family Medicine; Visit Provider Specialist | DX: Z47.1 Aftercare following joint replacement surgery (principal); Z96.652 Presence of left artificial knee joint | CPT/HCPCS: 97110 ==

== ENCOUNTER → 2024-04-24 08:15 | Outpatient (BNVA) | payer MEDICARE, SELFPAY | PROVIDERS: PCP Family Medicine; Visit Provider Specialist | DX: Z96.652 Presence of left artificial knee joint (principal) | CPT/HCPCS: 73560; 73565; 84439; 84443; 99213 ==

== ENCOUNTER → 2024-12-27 08:46 | Outpatient (BNVA) | payer MEDICARE, SELFPAY | PROVIDERS: PCP Family Medicine; Visit Provider Specialist | DX: Z96.652 Presence of left artificial knee joint (principal); M17.12 Unilateral primary osteoarthritis, left knee | CPT/HCPCS: 73560; 73565; 99213 ==

== ENCOUNTER → 2025-02-26 11:19 | Outpatient (BNVA) | payer MEDICARE, SELFPAY | PROVIDERS: PCP Family Medicine; Visit Provider Family Medicine | DX: E04.1 Nontoxic single thyroid nodule (principal); I10 Essential (primary) hypertension | CPT/HCPCS: 80053; 80061; 84439; 84443; 85025 ==

== ENCOUNTER → 2025-09-03 15:46 | Outpatient (BNVA) | payer MEDICARE, SELFPAY | PROVIDERS: PCP Family Medicine; Visit Provider Family Medicine | DX: E03.9 Hypothyroidism, unspecified (principal); E05.90 Thyrotoxicosis, unspecified without thyrotoxic crisis or storm | CPT/HCPCS: 84439; 84443; 84480 ==